=== PATIENT | female | born 2005 | race Two or more races ===

== ENCOUNTER 2024-04-19 21:46 | Emergency (ER) | payer SELFPAY ==
[2024-04-19 21:47] VITALS: BP 125/86; PULSE 85; O2SAT 98; BMI 29.0
--- NOTE | 2024-04-19 21:56 | PC.NURSE ---
Call placed to [facility] and spoke with Zaria. Zaria is speaking with Zaria via telephone at this time.
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
--- NOTE | 2024-04-19 22:31 | PC.NURSE ---
pt is speaking with vinny skaggs at bedside
--- NOTE | 2024-04-19 22:53 | PC.NURSE ---
coleman from [facility] is safety planning pt home with boyfriend
[2024-04-19 23:00] VITALS: BP 105/69; PULSE 68; O2SAT 99
== END 2024-04-19 23:01 | disposition home or self-care (01) ==
PROVIDERS: Emergency Provider Internal Medicine
DX: Z63.0 Problems in relationship with spouse or partner (principal)
CPT/HCPCS: 99283